=== PATIENT | male | born 1975 | race Caucasian/White ===

== ENCOUNTER 2022-10-18 21:48 | Outpatient (CLI) | payer OTHER | END 2022-10-18 21:49 | disposition critical access hospital (66) | LOC: EMS 21:48 | DX: T78.1XXA Other adverse food reactions, not elsewhere classified, initial encounter (principal); R60.0 Localized edema; R09.89 Other specified symptoms and signs involving the circulatory and respiratory systems | CPT/HCPCS: A0425; A0427 ==

== ENCOUNTER 2022-10-18 22:20 | Emergency (ER) | payer OTHER ==
[2022-10-18] MEDS ORDERED: methylPREDNISolone SUCCINATE 125 MG/2 ML VIAL IVP STA (22:28)
[2022-10-18] MEDS ORDERED: SODIUM CHLORIDE 0.9% 1,000 ML IV STA (22:28)
[2022-10-19 01:03] VITALS: BP 152/83
[2022-10-19] MEDS ORDERED: predniSONE 20 MG TABLET PO STA (01:05)
--- NOTE | 2022-10-19 02:18 | ED Physician Documentation ---
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 Patient accidentally ate a chocolate chip cookie that had nuts in it which he was unaware of. Shortly thereafter he felt his tongue swelling, tightness in his throat, feeling flushed, nausea. He administered his EpiPen to himself around 9:15 PM. EMS was called and they gave him 50 mg of IM Benadryl.Patient report starting to feel improvement.Patient has had similar reactions to this in the past with tree nuts. Review of Systems Constitutional: denies: Fever Cardiac: denies: Chest pain / pressure Respiratory: denies: Dyspnea GI: reports: Nausea. denies: Abdominal Pain Musculoskeletal: denies: Back pain Neurologic: denies: Headache PD PAST MEDICAL HISTORY - Past Medical History Past Medical History: No Respiratory: Asthma - Past Surgical History Past Surgical History: No - Present Medications Home Medications: Ambulatory Orders Medication Instructions Recorded Confirmed EPINEPHrine [Epinephrine] 0.3 mg IJ ONCE PRN #2 each 10/19/22 predniSONE [Deltasone] 60 mg PO DAILY 4 Days #12 tablet 10/19/22 - Allergies Allergies/Adverse Reactions: Allergies Allergy/AdvReac Type Severity Reaction Status Date / Time nut - unspecified Allergy Anaphylaxis Verified 10/18/22 22:30 - Social History Does the pt smoke?: No Smoking Status: Never smoker Does the pt drink ETOH?: Yes Does the pt have substance abuse?: No - Immunizations Immunizations are current?: No - POLST Patient has POLST: No PD ED PE NORMAL - General General: Alert and oriented X 3, No acute distress, Well developed/nourished - HEENT HEENT: Atraumatic, Moist mucous membranes, Other (Mild edema to tongue) - Neck Neck: Supple, no meningeal sign - Cardiac Cardiac: RRR, No murmur - Respiratory Respiratory: No respiratory distress, Clear bilaterally, Other (No wheezing, no stridor) - Abdomen Abdomen: Soft, Non tender - Derm Derm: Other (Flushed face and chest) - Extremities Extremities: No edema - Neuro Neuro: Alert and oriented X 3, No motor deficit Results - Vitals Vitals: Vital Signs - 24 hr 10/18/22 10/18/22 10/19/22 22:24 23:35 01:00 Temperature 37.9 C Heart Rate 112 H 98 105 H Respiratory 17 17 Rate Blood Pressure 162/99 H 113/65 152/83 H O2 Saturation 98 95 96 Oxygen O2 Source Room air PD Medical Decision Making - ED course Complexity details: re-evaluated patient, d/w patient ED course: Patient presenting for evaluation after developing anaphylactic reaction from accidentally ingesting tree nut. He slightly tachycardic which improved. Lung sounds are clear with no labored breathing. He does have mild tongue swelling. I did give him 125 of IV Solu-Medrol and IV fluids. He was monitored for several hours with continued improvement in his symptoms. He did not require repeated doses of epinephrine. Discussed plan for short course of p.o. steroids and refill of his EpiPen. Patient is feeling much better And tongue swelling did resolve. Patient is counseled on concerning symptoms to return for. Departure - Departure Disposition: 01 Home, Self Care Clinical Impression: Anaphylactic reaction Condition: Stable Instructions: ED Allergic Reaction General Other Prescriptions: predniSONE [Deltasone] 60 mg PO DAILY 4 Days #12 tablet EPINEPHrine [Epinephrine] 0.3 mg IJ ONCE PRN #2 each PRN Reason: Allergy Symptoms Comments: You were treated for an anaphylactic reaction. You received IV steroids as well as today's dose of oral steroids. I have written prescriptions for prednisone for 4 more days along with an EpiPen and printed these prescriptions for you.Please make sure to stay away from any known allergens. If you have any worsening symptoms Please call 911 or return to the emergency department. Discharge Date/Time: 10/19/22 01:15
== END 2022-10-19 01:15 | disposition home or self-care (01) ==
LOC: ED 22:20
DX: T78.05XA Anaphylactic reaction due to tree nuts and seeds, initial encounter (principal)
CPT/HCPCS: 96361; 96374; 99284